=== PATIENT | male | born 1965 | race Caucasian/White ===

== ENCOUNTER → 2018-01-30 | Outpatient (CLI) | payer OTHER | END | disposition home or self-care (01) | LOC: RD 10:27 | DX: R05 Cough (principal) ==

== ENCOUNTER 2018-09-04 06:39 | Day surgery (SDC) | payer OTHER ==
[~2018-09-04] VITALS: Ht 167.6 cm; Wt 68.5 kg
[2018-09-04 07:22] VITALS: BP 131/73
[2018-09-04 09:41] VITALS: BP 94/57
== END 2018-09-04 10:15 | disposition home or self-care (01) ==
LOC: GI 06:39 → OR 07:30 → GI 07:30
PROVIDERS: Internal Medicine
PROC: 0DB68ZX Excision of Stomach, Via Natural or Artificial Opening Endoscopic, Diagnostic (ICD-10-PCS; 2018-09-04)
PROC: 0DB58ZX Excision of Esophagus, Via Natural or Artificial Opening Endoscopic, Diagnostic (ICD-10-PCS; 2018-09-04)
PROC: 0DBE8ZX Excision of Large Intestine, Via Natural or Artificial Opening Endoscopic, Diagnostic (ICD-10-PCS; principal; 2018-09-04 07:30)
PROC: 0DB98ZX Excision of Duodenum, Via Natural or Artificial Opening Endoscopic, Diagnostic (ICD-10-PCS; 2018-09-04 07:30)
DX: Z12.11 Encounter for screening for malignant neoplasm of colon (principal); K57.30 Diverticulosis of large intestine without perforation or abscess without bleeding; R19.7 Diarrhea, unspecified; K20.8 Other esophagitis; K22.70 Barrett's esophagus without dysplasia; K29.50 Unspecified chronic gastritis without bleeding; K21.9 Gastro-esophageal reflux disease without esophagitis; F03.90 Unspecified dementia, unspecified severity, without behavioral disturbance, psychotic disturbance, mood disturbance, and anxiety; F70 Mild intellectual disabilities; Q90.9 Down syndrome, unspecified
CPT/HCPCS: 43239; 45380; J1200; J1610; J2250; J2310; J3010; J3490

== ENCOUNTER → 2019-01-22 | Outpatient (CLI) | payer OTHER | END | disposition home or self-care (01) | LOC: RD 16:35 | DX: M79.673 Pain in unspecified foot (principal) ==